=== PATIENT | male | born 1940 | race Caucasian/White ===

== ENCOUNTER 2017-09-01 12:01 | Inpatient (IN) | payer MEDICAID, MEDICARE, OTHER ==
--- NOTE | 2017-09-01 13:08 | RAD ---
INDICATION: History of left-sided CVA fall. COMPARISON: None TECHNIQUE: Noncontrast axial source images were acquired from the skull base to the vertex. FINDINGS: Ventricles/sulci: There is mild cortical volume loss with compensatory dilatation CSF spaces. . Brain parenchyma: There is no acute appearing focal parenchymal finding, evidence of intracranial mass, or intracranial mass effect. There is large area of encephalomalacia in a left MCA distribution consistent with a remote infarct. Intracranial hemorrhage:None. Extra-axial spaces: There are no abnormal extra axial fluid collections or evidence of extra-axial mass. Calvarium: There is no calvarial fracture or other calvarial abnormality. Scalp: There is no evidence of scalp or extracalvarial soft tissue abnormality. Paranasal sinuses/mastoid: There is left maxillary antral sinusitis with a short air-fluid level. The remaining paranasal sinuses and mastoid air cells are clear. Other: None. IMPRESSION: REMOTE LEFT MCA DISTRIBUTION INFARCT. NO ACUTE INTRACRANIAL FINDINGS. LEFT MAXILLARY ANTRAL SINUSITIS WITH AIR-FLUID LEVEL.
--- NOTE | 2017-09-01 13:08 | RAD ---
INDICATION: Syncope COMPARISON: None TECHNIQUE: An AP portable view obtained at 1300 hours is submitted. FINDINGS: Bones/Soft Tissues: There are no acute bony findings. Cardiomediastinal: The cardiomediastinal silhouette is normal. Lungs: There are no infiltrates. There is mild interstitial prominence perhaps related to mild interstitial congestion versus chronic interstitial change Pleura: There are no pleural effusions. Other: None IMPRESSION: MILD INTERSTITIAL PROMINENCE. NO FOCAL HEMORRHAGE.
--- NOTE | 2017-09-01 13:14 | RAD ---
INDICATION: Fall. Possible injury. COMPARISON: None TECHNIQUE: Noncontrast axial source images was performed from the skull base to the thoracic inlet. Coronal and and sagittal reformatted images were generated. FINDINGS: Vertebrae: There is no fracture or acute focal bony lesion. There is mild MID cervical osteoarthritic change. This consists of mild multilevel facet arthropathy, anterior vertebral spur perforation, and mild uncinate process spurring. There is moderate disc space narrowing about C6-C7. Alignment: The craniocervical junction appears normal. There is cervical spine straightening. Central Canal: There are no significant CT abnormalities of the central canal or foramina. MR imaging is a more sensitive method to evaluate the canal and foramina. Intervertebral disc spaces: The remaining disc spaces are maintained. Brain: The visualized brain appears unremarkable. Soft tissues: The visualized soft tissue elements of the neck are unremarkable. The prevertebral soft tissues appear normal. The lung apices are clear. IMPRESSION: MILD MID CERVICAL OSTEOARTHRITIC CHANGE. NO ACUTE FINDINGS.
[2017-09-01 13:31] LABS: ABS Basophils 0.1 10^3/ul (0-0.2); ABS Eosinophils 0 10^3/ul (0-0.6); ABS Lymphocytes 0.9 10^3/ul (1.0-4.8); ABS Monocytes 0.7 10^3/ul (0-0.8); ABS Neutrophils 9.7 10^3/ul (1.5-7.7); ABS Nucleated RBC 0 10^3/ul; Eosinophil % 0.4 % (0-6); Hematocrit 42 % (42-52); Lymphocyte % 7.7 % (25-47); Mean Corpuscular HGB Conc 34 g/dl (31-36); Mean Corpuscular Hemoglobin 27 pg (27-31); Mean Corpuscular Volume 80 fL (80-94); Mean Platelet Volume 8.4 um3 (7.4-10.4); Nucleated Red Blood Cells % 0; Platelet Count 279 10^3/ul (150-450); Red Blood Count 5.22 10^6/ul (4.00-5.40); Red Cell Distribution Width 16 % (10.5-15); White Blood Count 11.4 10^3/ul (3.5-10.8)
[2017-09-01 13:40] LABS: INR 0.93 (0.77-1.02)
[2017-09-01 13:48] LABS: EGFR Non-African American 47.4 (>60)
[2017-09-01] MEDS ORDERED: Acetaminophen SUPP* 650 MG SUPP PR PRN (14:21)
[2017-09-01] MEDS ORDERED: Ondansetron INJ* 2 MG/ML VIAL IV PRN (14:21)
[2017-09-01] MEDS ORDERED: Albuterol 2.5 MG/3 ML NEB.SOL* (0.083%) INH PRN (14:21)
[2017-09-01] MEDS ORDERED: NS 0.9% 1000 ML* 1,000 ML IV SCH ×2 (14:30→16:11)
--- NOTE | 2017-09-01 14:49 | RAD ---
INDICATION: Fall. Possible pelvic injury. COMPARISON: No plain radiographs were obtained TECHNIQUE: Noncontrast axial scans the pelvis were obtained FINDINGS: There is no acute pelvic or hip fracture. The SI joints and symphysis are intact. The visualized intraperitoneal structures appear normal. The bladder is distended. The prostate contains calcifications but is normal in size. There are no abnormalities of the pelvic sidewall. There is no free fluid or adenopathy. The noncontrast CT appearance of the visualized bowel is normal. There are extensive aortic and iliac calcifications. The superficial soft tissues are normal IMPRESSION: NO ACUTE CT FINDINGS.
--- NOTE | 2017-09-01 15:02 | RAD ---
INDICATION: Fall. Possible left elbow injury. COMPARISON: None TECHNIQUE: AP and lateral views were obtained. FINDINGS: The bony structures, joint spaces, and soft tissues are normal for age. IMPRESSION: NEGATIVE EXAMINATION
[2017-09-01] MEDS ORDERED: Piperacillin/Tazobac ADVAN(*) 3.375 GM in NS 0.9% 100 ML* 100 ML IVPB ONE (16:30)
--- NOTE | 2017-09-01 16:36 | PN ---
Hospitalist Progress Note Date of Service: 09/01/17 called to bedside for high resp rate. Upon eval noted patient not using accessory muscles did not appear to be in distress. With movement of patient note that he starting moaning and taking swallow breaths, inquired about pain patient denies. Patient resp rate counted noted to be 26. o2 sats 98 2 lnc, nursing concern for crackles in bases, on left side, upon listening unable to hear crackles however patient not taking deep breath, resp called nebs given, given cough and crackles will empirically start zosyn for ? aspiration PNA, will have attending eval as well. Patient appears comfortable now, will continue ivf at lower rate, continue o2 and prn nebs,
[2017-09-01] MEDS ORDERED: Zosyn per Pharmacy* NOTE FOLLOW UP SCH (17:00)
--- NOTE | 2017-09-01 19:01 | HP ---
CC: Esther Bravo NP* HISTORY AND PHYSICAL: DATE OF ADMISSION: 09/01/17 PRIMARY CARE PROVIDER: Esther Bravo NP ATTENDING PHYSICIAN WHILE IN THE HOSPITAL: Dr. Tamiko Barron* (report being dictated by Sylvain Salguero NP) CHIEF COMPLAINT: 1. Fall. 2. Lethargy. HISTORY OF PRESENT ILLNESS: I would like to preface the report by stating that the patient has a significant amount of schizophrenia. In addition to this, he has had a significant stroke about 30 years ago leaving him impaired with speech. At baseline, he can only say yes or no and has significant weakness on his right side. The son is able to give most of the history and answer my questions. Currently, the patient is coming in today because recently a few weeks ago, he was started on Seroquel 25 mg; he had been doing well with this according to the son. For unknown reason, at this point we are going to try to get records, [facility].5 [facility]. Son has noted over the last several days that the patient has had some increasing lethargy. He has been noted to be more weak, tired, drowsy. There have been no reports of fevers or chills or any worsening cough. No shortness of breath was reported, with the exception the son does state that for several years, he has noticed that with exertion, the patient does get short of breath. He has a history of heavy smoking. Son does state that this morning, the patient got up , the son had heard a fall, he had heard a thud, loud noise. He came to his father's bedside. It was noted that the patient was on the ground. He was complaining of headache. The patient's son got the patient back into bed, he went back to sleep; however, he got him up again around 9:30, got him into the patient's chair. The patient then started having an episode where he was coughing, became kind of wheezing, and then he vomited. At that point, the son was concerned and called 911 immediately. There have been no reports of fever, no recent reports of vomiting. No reports of abdominal pain from the patient to the son, and because of the fall and this new episode of vomiting, he came in to the ER. He was evaluated in the ED and we were asked to evaluate for admission. PAST MEDICAL HISTORY: Significant for: 1. Schizophrenia. 2. Depression. 3. Hyperlipidemia. 4. 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 PAST SURGICAL HISTORY: Denied by the son. MEDICATIONS: Home meds according to the pill bottles provided include: 1. Seroquel 37.5 mg at bedtime. 2. Vitamin D 1000 units p.o. daily. 3. Zocor 20 mg p.o. daily. ALLERGIES TO MEDICATIONS: Include no known drug allergies. FAMILY HISTORY: Father in World War II. Mother, according to the patient' s son, at the age of 90 from CHF. SOCIAL HISTORY: The patient was a former 9-mapg-x-day smoker. He smoked from the age of 17 to about 5 years ago. There were no reports of alcohol use. No reports of drug use. Surrogate decision maker is the patient's son and the patient's ex- . REVIEW OF SYSTEMS: Again, it is difficult to obtain from the patient directly given the fact that he has significant schizophrenia and significant history of stroke. There are no reports of again fever. No documented weight change. No reports of double vision or ear discharge. There is no rhinorrhea. There are reports of a cough, but no change in characteristics. There was 1 episode of nausea and vomiting. No abdominal pain. No chest pain was reported. There is no loss of consciousness. No pruritus, no skin ulcerations. Review of 14 systems was completed, all others negative. PHYSICAL EXAMINATION GENERAL: At this time, Mr. Casetllanos is a 77-year-old male patient. He is sitting in the ED stretcher. He does not appear to be in any acute distress. VITAL SIGNS: Blood pressure 175/76 with a pulse of 62, respirations were 26, O2 sat was 98% on 2 L, temperature was 98.9. HEENT: Head is atraumatic and normocephalic. Eyes: EOMs are intact. Sclerae anicteric and not pale. Throat: Oral mucosa does appear to be dry. No oropharyngeal erythema. NECK: Supple. LUNGS: No wheezes, rales, or rhonchi. HEART: Sounds S1, S2, regular rate and rhythm. No murmurs, rubs, or gallops. ABDOMEN: Soft, flat, nontender. Bowel sounds present. EXTREMITIES: Pulses were 2+ throughout. He can move the left side with 5/5 strength. The right side, he has significant amount of hemiparesis. He has a significantly weakened compliance counsel compared to his left side and he is unable to lift the arm at the shoulder or unable to lift the lower extremity on the right side as well. NEUROLOGIC: He is awake, alert to himself only. Unable to tell if he is alert to time and place given that he cannot tell me the time and place because of the stroke. Speech is again impaired. His compressor mechanic bus were unequal, the right side was significantly weaker than the left side. He had weakness to his right lower extremity as well. He had 5/5 strength on the left side. No facial drooping. No tongue deviation and no other gross focal deficits. SKIN: Intact. DIAGNOSTIC STUDIES/LAB DATA: WBC of 11.4, RBC of 5.22, hemoglobin of 14.0, hematocrit of 42, platelet count of 279. The INR was 0.93, PTT of 27.3, D- dimer was 251. Blood gas showed a PO2 of 79, pH and PCO2 were normal. Bicarb on blood gas was 24.7. Sodium on chemistry is 140; potassium 4.2; chloride of 106; bicarb 27; BUN 19; creatinine 1.44, last lab that I have was from 7 years ago, creatinine was 1; glucose 121; lactate 1.1; calcium 9.4; mag 2.2. Total bili 0.6, AST 12, ALT 9, alk phos 57. Ammonia 30. CK 68. Troponin 0.01. BNP 142. Albumin was 3.9. TSH pending. Toxicology was negative for alcohol. He had multiple imaging here in the emergency department. CT brain read as remote left MCA distribution infarct, no acute intracranial findings, left maxillary antral sinusitis with air-fluid level. Chest x-ray obtained today, mild interstitial prominence, no focal hemorrhage. CT cervical spine shows mild mid cervical osteoarthritic change, no acute findings. EKG shows sinus bradycardia at a rate of 55. He had no ST elevation or T-wave inversions noted. Reviewed it to the previous EKG from again 2010, showing normal sinus rhythm, rate of 72, no acute changes especially in the lead, the rate was not slow. Old medical records were reviewed. ASSESSMENT AND PLAN: Mr. Castellanos is a 77-year-old male patient coming in to the ED today with complaints of fall. In interviewing with the patient, there was concern for again the episodes of vomiting today. In addition, there is also a concern for the patient's altered mental status. He will be admitted under observation status for: 1. Fall. Again, I question if this is secondary to the fact that he has been more lethargic and drowsy, which certainly could be secondary to the Seroquel dosage increase. So, I would decrease this dose. Have PT evaluate him. I will get a CT of the pelvis to make sure there is no pelvic pathology, fracture. I will also check an x-ray of his left elbow as he does have a significant skin tear here to make sure there is no fracture there. I will get PT involved. We will decrease the Seroquel and monitor him and if his mental status has not returned to baseline, then I would certainly get Neurology involved, but at this point again, I would like to decrease the Seroquel dosing. In addition to this, try to get a urine sample on the patient. 2. History of cerebrovascular accident. At this point, we will continue with secondary prevention. He is on a statin, but he is not on an aspirin, which we will double check with the patient, see if he is taking this, but if he is not on one, we should consider him certainly being on an aspirin. 3. History of schizophrenia. Again, we are going to decrease his Seroquel. 4. Hypoxia. Again, when he came in to the ED, it was noted that his saturations were 85%. His PCO2 was a little low at 79. Question if he did aspirate with the vomiting episode. I will go ahead and hold off on antibiotics unless he spikes a fever or if his white count climbs, it is right around 11,400. I would certainly put him on antibiotics if that climbs or if he spikes a fever. I will go ahead and place him n.p.o. with aspiration precautions and get a swallow evaluation because he may have aspirated after the vomiting episode. 5. DVT prophylaxis. I will place him on heparin subcu as he is high risk for deep venous thrombosis. 6. Code status. The son thinks that the patient does have a DNR, but he is unsure. He thinks there may be [facility]. I am going to try to get that from [facility] when able, but for the time being, he will be a full code until we can sort this out when the [facility]. 7. Fluids, electrolytes, and nutrition. Again, n.p.o. Normal saline at 100 an hour has been ordered. TIME SPENT: On admission was 60 minutes, greater than half the time was spent face- to-face with the patient obtaining my history and physical; other half the time was spent going over the plan of care with the patient and implementing plan of care. I did discuss the plan of care with my attending, Dr. Barron; she is in agreement. SYLVAIN SALGUERO NP [id number]/[facility] #: [id number] MTDHenrry
[2017-09-01] MEDS: Atorvastatin* 10 MG TAB PO SCH (20:41)
[2017-09-01] MEDS: QUEtiapine TAB* 25 MG PO SCH (20:41)
[2017-09-01] MEDS: Heparin VIAL(*) 5000 UNITS/ML VIAL (FIVE THOUSAND) SUBCUT SCH (20:42)
[2017-09-01] MEDS: ZOSYN 3.375 GM Q8H per EXTENDED INFUSION IVPB SCH ×2 (20:42)
[2017-09-01] MEDS: Nystatin TOP POWDER* 15 GM BTL TOPICAL SCH (21:50)
--- NOTE | 2017-09-01 22:37 | ED ---
Woody Carlton Simon, scribed for Jenny Rodriguez MD on 09/01/17 at 1259 . Syncope/Near Syncope - HPI Summary HPI Summary: This patient is a 77 year old M presenting to [facility] via EMS from home with a chief complaint of syncope/fall at 1000am today. Dr. Rodriguez spoke with Eunice Brito, pts ex- ([phone], ) who lives with pt and their son, who disclosed pt receives care at [place] , is taking a new med, endorsed that pt fell while walking without walker (which he normally uses) and vomited. States he son is coming to the ED. He denies neck pain, BROWN (although endorsed in triage), extremity pain. Vital signs 164/69, 58 bpm, O2 sat 86 ( with poor waveform).LEVEL 5 CAVEAT: Full HPI unobtainable due to pts AMS and aphasia due to PMHx stroke 40 years ago. - History Of Current Complaint Chief Complaint: EDNeurologicalDeficit Time Seen by Provider: 09/01/17 12:16 Hx Obtained From: Patient, Family/Stunner - pt's ex , EMS Hx From Patient Unobtainable Due To: Altered Mental Status - aphasia from previous stroke Onset/Duration: Sudden Onset, Lasting Hours Timing: Hours - 1000 Context: Unwitnessed, Other - recent medication increase (Seroquel) Activity At Onset: Exertion - walking Associated Head Trauma: Yes Aggravating Factor(s): Nothing Alleviating Factor(s): Nothing Associated Signs And Symptoms: AMS - Allergies/Home Medications Allergies/Adverse Reactions: Allergies Allergy/AdvReac Type Severity Reaction Status Date / Time No Known Allergies Allergy See Comment Verified 09/02/17 10:15 Home Medications: Home Medications Cholecalciferol TAB* [Vitamin D TAB*] 1,000 unit PO DAILY 09/01/17 [History Confirmed 09/01/17] Simvastatin TAB(NF) [Zocor 20 MG (NF)] 20 mg PO BEDTIME 09/01/17 [History Confirmed 09/01/17] PMH/Surg Hx/FS Hx/Imm Hx Previously Healthy: No Cardiovascular History: Reports: Hx Hypercholesterolemia Neurological History: Reports: Hx CVA Psychiatric History: Reports: Hx Anxiety, Hx Depression, Hx Schizophrenia - Surgical History Surgery Procedure, Year, and Place: none Infectious Disease History: No Infectious Disease History: Denies: Traveled Outside the [place] in Last 30 Days - Family History Known Family History: Positive: Hypertension, Other - CHF - Social History Lives: With Family Alcohol Use: None Substance Use Type: Reports: None Smoking Status (MU): Heavy Every Day Tobacco Smoker Review of Systems Positive: Other - increased lethargy Cardiovascular: Negative Respiratory: Negative Positive: Vomiting Positive: Headache Psychological: Other - increased lethargy per son, pt aphasic, unable to assess All Other Systems Reviewed And Are Negative: No - Comments Additional Review of Systems Comments: Level 5 caveat: Full ROS unobtainable due to pt's mental status, aphasia secondary to remote CVA. Physical Exam - Summary Physical Exam Summary: Appearance: Chronically ill-appearing, unable to assess pain distress, well- nourished, can answer only yes/no questions. Skin: Warm, color reflects adequate perfusion, dry Head: Normal Head/Face inspection, atraumatic Eyes: Conjunctiva clear, PERRL, EOMI ENT: Normal inspection, atraumatic Neck: Supple, no nodes, no JVD, nontender Respiratory: Lungs clear, normal breath sounds, no respiratory distress Cardio: RRR, No murmur, pulses normal, brisk capillary refill Abdomen: Soft, nontender Bowel sounds: Present Musculoskeletal: Strength Intact/ROM intact, no calf tenderness, no edema. Psychological: Normal Neuro: Alert, aphasic, muscle tone normal, right sided weakness unchanged per son Triage Information Reviewed: Yes Vital Signs On Initial Exam: Initial Vitals Pulse Pulse Ox 59 96 09/01/17 12:20 09/01/17 12:20 Vital Signs Reviewed: Yes Diagnostics - Vital Signs Vital Signs Temp Pulse Resp BP Pulse Ox 09/01/17 12:51 158/77 09/01/17 12:41 97 09/01/17 12:30 98.9 F 55 18 164/69 97 09/01/17 12:21 56 164/69 96 09/01/17 12:20 59 96 - Laboratory Result Diagrams: 09/04/17 04:49 09/03/17 05:07 Lab Statement: Any lab studies that have been ordered have been reviewed, and results considered in the medical decision making process. - Radiology CXR Xray Interpretation: Positive (See Comments) Radiology Interpretation Completed By: Radiologist - MILD INTERSTITIAL PROMINENCE. NO FOCAL HEMORRHAGE. Dr. Rodriguez has reviewed this report. elbow Xray Interpretation: No Acute Changes Radiology Interpretation Completed By: Radiologist - Negative examination. Dr. Rodriguez has reviewed this report. - CT Brain CT Interpretation: Positive (See Comments) CT Interpretation Completed By: Radiologist - REMOTE LEFT MCA DISTRIBUTION INFARCT. NO ACUTE INTRACRANIAL FINDINGS. LEFT MAXILLARY ANTRAL SINUSITIS WITH AIR-FLUID LEVEL. Dr. Rodriguez has reviewed this report. C-Spine CT Interpretation: Positive (See Comments) CT Interpretation Completed By: Radiologist - MILD MID CERVICAL OSTEOARTHRITIC CHANGE. NO ACUTE FINDINGS. Dr. Rodriguez has reviewed this report. pelvis CT Interpretation: No Acute Changes CT Interpretation Completed By: Radiologist - No acute CT findings. Dr. Rodriguez has reviewed this report. - EKG 1230 Cardiac Rate: Bradycardia - 55 EKG Rhythm: Sinus Bradycardia ST Segment: Non-Specific Ectopy: None EKG Interpretation: nl AVIVCT, nl QTc, nl axis, no acute changes EKG Comparison: No Significant Change - compared with 08/26/10, no significant changes Re-Evaluation - Re-Evaluation First Eval Re-Evaluation Time: 13:30 Change: Unchanged Comment: son with pt Course/Dx Course Of Treatment: A 77-year-old M presents to the ED via EMS after fall/ syncope at home today, after recent increase in seroquel by [facility]. Pt provides limited hx (level 5 caveat), can answer yes/no questions, due to prior CVA and aphasia. Pt's ex who lives with pt provided hx by phone, as well as son present in ED. CT brain and neck with no acute abnormalities. Pt with low O2 sats in the ED, and had vomited after the syncope/fall, so possible aspiration. Pt is not a TPA candidate, no new neuro deficit, code wong not called. - Diagnoses Differential Diagnosis/HQI/PQRI: Positive: Cerebral Vascular Accident, Coronary Artery Disease, Metabolic Reaction, Medication Reaction, Seizure, Vasovagal Episode Provider Diagnoses: Syncope, Fall, Hypoxia - Physician Notifications Discussed Care of Patient With: Tamiko Young Time Discussed With Above Provider: 13:40 Instructed by Provider To: Admit As Inpatient - Accepted admission. Discharge - Sign-Out/Discharge Documenting (check all that apply): Patient Departure - admit - Discharge Plan Condition: Stable Disposition: ADMITTED TO [facility] - Billing Disposition and Condition Condition: STABLE Disposition: Admitted to [facility] The documentation as recorded by the Woody biggs Simon accurately reflects the service I personally performed and the decisions made by , Jenny Rodriguez MD.
[2017-09-02] MEDS: ZOSYN 3.375 GM Q8H per EXTENDED INFUSION IVPB SCH ×6 (05:15→20:28)
[2017-09-02] MEDS: Heparin VIAL(*) 5000 UNITS/ML VIAL (FIVE THOUSAND) SUBCUT SCH ×3 (05:15→20:28)
--- NOTE | 2017-09-02 05:30 | PN ---
Progress Note - Progress Note Date of Service: 09/02/17 Note: Cross cover: No UOP overnight. Bladder scan at 930am and page covering provider. May need ho but was difficult straight cath in ED and cannot indicate if he feels need to void.
[2017-09-02 06:56] LABS: Hematocrit 39 % (42-52); Hemoglobin 12.9 g/dl (14.0-18.0); Mean Corpuscular HGB Conc 33 g/dl (31-36); Mean Corpuscular Hemoglobin 27 pg (27-31); Mean Corpuscular Volume 81 fL (80-94); Mean Platelet Volume 8.5 um3 (7.4-10.4); Platelet Count 248 10^3/ul (150-450); Red Blood Count 4.78 10^6/ul (4.00-5.40); Red Cell Distribution Width 16 % (10.5-15); White Blood Count 13.1 10^3/ul (3.5-10.8)
[2017-09-02 07:12] LABS: EGFR Non-African American 45.3 (>60)
[2017-09-02 08:47] LABS: ABS Basophils 0 10^3/ul (0-0.2); ABS Eosinophils 0.2 10^3/ul (0-0.6); ABS Lymphocytes 1.5 10^3/ul (1.0-4.8); ABS Monocytes 1.6 10^3/ul (0-0.8); ABS Neutrophils 9.7 10^3/ul (1.5-7.7); ABS Nucleated RBC 0 10^3/ul; Eosinophil % 1.8 % (0-6); Lymphocyte % 11.8 % (25-47); Nucleated Red Blood Cells % 0.1
[2017-09-02] MEDS: Nystatin TOP POWDER* 15 GM BTL TOPICAL SCH ×3 (10:23→20:27)
[2017-09-02] MEDS: Cholecalciferol TAB* 1000 UNITS PO SCH (10:23)
[2017-09-02] MEDS: Aspirin EC TAB* 81 MG TAB.EC PO SCH (10:23)
--- NOTE | 2017-09-02 13:52 | PN ---
Subjective Date of Service: 09/02/17 Interval History: HOSPITALIST PROGRESS NOTE Patient seen and examined at bedside. Care reviewed and d/w Lucita Garner RN. He's more awake today. With yes or no answers he's able to tell me he has no shortness of breath or pain, but is hungry. Family History: Unchanged from Admission Social History: Unchanged from Admission Past Medical History: Unchanged from Admission Objective Active Medications: Acetaminophen (Tylenol Supp*) 650 mg [place] Q4H PRN PRN Reason: FEVER/PAIN Albuterol (Ventolin 2.5 Mg/3 Ml Neb.Chanel*) 2.5 mg INH Q2H PRN PRN Reason: SOB/WHEEZING Last Admin: 09/01/17 16:20 Dose: 2.5 mg Aspirin (Aspirin Ec Tab*) 81 mg PO DAILY [facility] Last Admin: 09/02/17 10:23 Dose: 81 mg Atorvastatin Calcium (Lipitor*) 10 mg PO BEDTIME [facility] Last Admin: 09/01/17 20:41 Dose: 10 mg Cholecalciferol (Vitamin D Tab*) 1,000 units PO DAILY [facility] Last Admin: 09/02/17 10:23 Dose: 1,000 units Heparin Sodium (Porcine) (Heparin Vial(*)) 5,000 units SUBCUT Q8HR [facility] Last Admin: 09/02/17 13:25 Dose: 5,000 units Sodium Chloride (Ns 0.9% 1000 Ml*) 1,000 mls @ 75 mls/hr IV PER RATE [facility] Last Admin: 09/01/17 16:34 Dose: 75 mls/hr Piperacillin Sod/Tazobactam (Sod 3.375 gm/ Sodium Chloride) 100 mls @ 25 mls/ hr IVPB Q8H [facility] Last Admin: 09/02/17 12:30 Dose: 25 mls/hr Nystatin (Nystatin Top Powder*) 1 applic TOPICAL TID [facility] Last Admin: 09/02/17 13:25 Dose: 1 applic Ondansetron HCl (Zofran Inj*) 4 mg IV Q6H PRN PRN Reason: NAUSEA Pharmacy Consult (Zosyn Per Pharmacy*) 1 note FOLLOW UP .ZOSYN PER PHARMACY [facility] Quetiapine Fumarate (Seroquel Tab*) 25 mg PO BEDTIME [facility] Last Admin: 09/01/17 20:41 Dose: 25 mg Vital Signs - 8 hr 09/02/17 09/02/17 09/02/17 07:25 09:06 11:19 Temperature 97.4 F 97.6 F Pulse Rate 72 73 65 Respiratory 17 20 20 Rate Blood Pressure 157/64 141/53 (mmHg) O2 Sat by Pulse 97 97 98 Oximetry Oxygen Devices in Use Now: Nasal Cannula - 2 liters Appearance: Elderly gentleman lying in bed in NAD. Eyes: No Scleral Icterus Ears/Nose/Mouth/Throat: Mucous Membranes Moist Neck: Trachea Midline Respiratory: Symmetrical Chest Expansion and Respiratory Effort, - - BS+ bilaterally with left base crackles Cardiovascular: RRR - Normal S1 and S2 Abdominal: NL Sounds; No Tenderness; No Distention Neurological: - - Alert and awake Result Diagrams: 09/02/17 06:13 09/02/17 06:13 Assess/Plan/Problems-Billing Assessment: Mr. Castellanos is a 77yo M with PMH of schizophrenia, depression, HLD, CVA 30 years ago, who presented to ED s/p fall with lethargy. - Patient Problems (1) Lethargy Comment: - Suspect this is medication related as his Seroquel dose had been recently increased. - Dose reduced back to 25mg and mental status seems to be improving. (2) Fall Comment: - Likely secondary to Seroquel induced lethargy as described above. - PT consult requested. (3) Hypoxia Comment: - Suspect patient's hypoxia is secondary to aspiration pneumonia. - Continue Zosyn. (4) CVA (cerebral vascular accident) Comment: - Continue Aspirin and Atorvastatin. (5) DVT prophylaxis Comment: - SQ heparin. Status and Disposition: Inpatient. Will likely need AN[facility]I.
[2017-09-02] MEDS: QUEtiapine TAB* 25 MG PO SCH (20:27)
[2017-09-02] MEDS: Atorvastatin* 10 MG TAB PO SCH (20:27)
[2017-09-03] MEDS: Heparin VIAL(*) 5000 UNITS/ML VIAL (FIVE THOUSAND) SUBCUT SCH ×3 (05:11→20:25)
[2017-09-03] MEDS: ZOSYN 3.375 GM Q8H per EXTENDED INFUSION IVPB SCH ×4 (05:11→12:34)
[2017-09-03 06:16] LABS: ABS Basophils 0.1 10^3/ul (0-0.2); ABS Eosinophils 0.4 10^3/ul (0-0.6); ABS Lymphocytes 1.3 10^3/ul (1.0-4.8); ABS Monocytes 1.5 10^3/ul (0-0.8); ABS Neutrophils 8.1 10^3/ul (1.5-7.7); ABS Nucleated RBC 0 10^3/ul; Eosinophil % 3.8 % (0-6); Hematocrit 37 % (42-52); Hemoglobin 12.1 g/dl (14.0-18.0); Lymphocyte % 11.7 % (25-47); Mean Corpuscular HGB Conc 33 g/dl (31-36); Mean Corpuscular Hemoglobin 27 pg (27-31); Mean Corpuscular Volume 81 fL (80-94); Mean Platelet Volume 8.7 um3 (7.4-10.4); Nucleated Red Blood Cells % 0.1; Platelet Count 229 10^3/ul (150-450); Red Blood Count 4.54 10^6/ul (4.00-5.40); Red Cell Distribution Width 16 % (10.5-15); White Blood Count 11.4 10^3/ul (3.5-10.8)
[2017-09-03 06:40] LABS: EGFR Non-African American 46.3 (>60)
[2017-09-03] MEDS: Nystatin TOP POWDER* 15 GM BTL TOPICAL SCH ×3 (08:49→20:26)
[2017-09-03] MEDS: Cholecalciferol TAB* 1000 UNITS PO SCH (08:49)
[2017-09-03] MEDS: Aspirin EC TAB* 81 MG TAB.EC PO SCH (08:49)
--- NOTE | 2017-09-03 14:23 | PN ---
Subjective Date of Service: 09/03/17 Interval History: HOSPITALIST PROGRESS NOTE Patient seen and examined at bedside. Care reviewed and d/w Lucita Castellanos RN. Answers yes and no questions only. Denies pain or shortness of breath. Answers "yes" when I asked if he was hungry. Family History: Unchanged from Admission Social History: Unchanged from Admission Past Medical History: Unchanged from Admission Objective Active Medications: Acetaminophen (Tylenol Supp*) 650 mg [place] Q4H PRN PRN Reason: FEVER/PAIN Albuterol (Ventolin 2.5 Mg/3 Ml Neb.Chanel*) 2.5 mg INH Q2H PRN PRN Reason: SOB/WHEEZING Last Admin: 09/01/17 16:20 Dose: 2.5 mg Aspirin (Aspirin Ec Tab*) 81 mg PO DAILY [facility] Last Admin: 09/03/17 08:49 Dose: 81 mg Atorvastatin Calcium (Lipitor*) 10 mg PO BEDTIME [facility] Last Admin: 09/02/17 20:27 Dose: 10 mg Cholecalciferol (Vitamin D Tab*) 1,000 units PO DAILY [facility] Last Admin: 09/03/17 08:49 Dose: 1,000 units Heparin Sodium (Porcine) (Heparin Vial(*)) 5,000 units SUBCUT Q8HR [facility] Last Admin: 09/03/17 12:33 Dose: 5,000 units Piperacillin Sod/Tazobactam (Sod 3.375 gm/ Sodium Chloride) 100 mls @ 25 mls/ hr IVPB Q8H [facility] Last Admin: 09/03/17 12:34 Dose: 25 mls/hr Nystatin (Nystatin Top Powder*) 1 applic TOPICAL TID [facility] Last Admin: 09/03/17 12:33 Dose: 1 applic Ondansetron HCl (Zofran Inj*) 4 mg IV Q6H PRN PRN Reason: NAUSEA Pharmacy Consult (Zosyn Per Pharmacy*) 1 note FOLLOW UP .ZOSYN PER PHARMACY [facility] Quetiapine Fumarate (Seroquel Tab*) 25 mg PO BEDTIME [facility] Last Admin: 09/02/17 20:27 Dose: 25 mg Vital Signs - 8 hr 09/03/17 09/03/17 09/03/17 07:35 08:00 10:28 Temperature 97.3 F Pulse Rate 71 Respiratory 18 22 Rate Blood Pressure 154/49 (mmHg) O2 Sat by Pulse 100 95 Oximetry 09/03/17 11:18 Temperature 98.3 F Pulse Rate 81 Respiratory 18 Rate Blood Pressure 151/65 (mmHg) O2 Sat by Pulse 99 Oximetry Oxygen Devices in Use Now: None Appearance: Elderly gentleman lying in bed in NAD. Eyes: No Scleral Icterus Ears/Nose/Mouth/Throat: Mucous Membranes Moist Neck: Trachea Midline Respiratory: Symmetrical Chest Expansion and Respiratory Effort, - - BS+ bilaterally with crackles on left base Cardiovascular: RRR - Normal S1 and S2 Neurological: - - Alert and awake Result Diagrams: 09/03/17 05:07 09/03/17 05:07 Assess/Plan/Problems-Billing Assessment: Mr. Castellanos is a 77yo M with PMH of schizophrenia, depression, HLD, CVA 30 years ago, who presented to ED s/p fall with lethargy. - Patient Problems (1) Lethargy Comment: - Suspect this is medication related as his Seroquel dose had been recently increased. - Dose reduced back to 25mg and mental status seems to be close to baseline. (2) Fall Comment: - Likely secondary to Seroquel induced lethargy as described above. - PT consult appreciated - needs Roger lift for transfers. Will require [facility]. (3) Hypoxia Comment: - Suspect patient's hypoxia is secondary to aspiration pneumonia. - D/c Zosyn and start Augmentin #3/5. (4) CVA (cerebral vascular accident) Comment: - Continue Aspirin and Atorvastatin. (5) DVT prophylaxis Comment: - SQ heparin. Status and Disposition: Inpatient. Will likely need [facility].
[2017-09-03] MEDS: Amoxicillin/Clavulanate SUSP* 600 MG/5 ML ORAL.SUSP 75 ML (600/42.9) PO SCH ×2 (16:46→20:25)
[2017-09-03] MEDS: Atorvastatin* 10 MG TAB PO SCH (20:25)
[2017-09-03] MEDS: QUEtiapine TAB* 25 MG PO SCH (20:25)
[2017-09-03] MEDS: amLODIPine TAB* 5 MG PO SCH (20:52)
--- NOTE | 2017-09-03 22:41 | PN ---
Hospitalist Progress Note Date of Service: 09/03/17 Informed by RN that pt recently started on Norvasc by Sylvain segura; received page informing me that pt's blood pressure is still elevated. This is not surprising because norvasc is probably not at its therapeutic levels at this time. Will place pt on PRN IV Hydralazine and will defer any further adjustments of maintenance anti-hypertensives with Dr. Young in her subsequent re-evaluations.
[2017-09-03] MEDS: hydrALAZINE IV* 20 MG/ML VIAL IV SLOW PU PRN (23:10)
[2017-09-04 04:59] LABS: ABS Basophils 0.1 10^3/ul (0-0.2); ABS Eosinophils 0.6 10^3/ul (0-0.6); ABS Lymphocytes 2.1 10^3/ul (1.0-4.8); ABS Monocytes 1.4 10^3/ul (0-0.8); ABS Neutrophils 7.1 10^3/ul (1.5-7.7); ABS Nucleated RBC 0 10^3/ul; Eosinophil % 5.1 % (0-6); Hematocrit 37 % (42-52); Hemoglobin 12.5 g/dl (14.0-18.0); Lymphocyte % 18.4 % (25-47); Mean Corpuscular HGB Conc 34 g/dl (31-36); Mean Corpuscular Hemoglobin 27 pg (27-31); Mean Corpuscular Volume 80 fL (80-94); Mean Platelet Volume 8.4 um3 (7.4-10.4); Nucleated Red Blood Cells % 0.1; Platelet Count 252 10^3/ul (150-450); Red Blood Count 4.65 10^6/ul (4.00-5.40); Red Cell Distribution Width 16 % (10.5-15); White Blood Count 11.2 10^3/ul (3.5-10.8)
[2017-09-04] MEDS: hydrALAZINE IV* 20 MG/ML VIAL IV SLOW PU PRN (05:09)
[2017-09-04] MEDS: Heparin VIAL(*) 5000 UNITS/ML VIAL (FIVE THOUSAND) SUBCUT SCH ×3 (05:10→21:51)
[2017-09-04] MEDS ORDERED: Furosemide IV* 10 MG/ML VIAL (40 MG) IV SLOW PU ONE (07:30)
[2017-09-04] MEDS: Amoxicillin/Clavulanate SUSP* 600 MG/5 ML ORAL.SUSP 75 ML (600/42.9) PO SCH ×3 (09:48→21:51)
[2017-09-04] MEDS: Nystatin TOP POWDER* 15 GM BTL TOPICAL SCH ×4 (09:49→21:51)
[2017-09-04] MEDS: Aspirin EC TAB* 81 MG TAB.EC PO SCH (09:49)
[2017-09-04] MEDS: amLODIPine TAB* 5 MG PO SCH (09:49)
[2017-09-04] MEDS: Cholecalciferol TAB* 1000 UNITS PO SCH (09:49)
--- NOTE | 2017-09-04 15:00 | PN ---
Subjective Date of Service: 09/04/17 Interval History: HOSPITALIST PROGRESS NOTE Patient seen and examined at bedside. Care reviewed and d/w Lolita Nair RN. Answer yes/no questions. Denies pain, dyspnea, N/V, hunger. Family History: Unchanged from Admission Social History: Unchanged from Admission Past Medical History: Unchanged from Admission Objective Active Medications: Acetaminophen (Tylenol Supp*) 650 mg [place] Q4H PRN PRN Reason: FEVER/PAIN Last Admin: 09/04/17 14:35 Dose: 650 mg Albuterol (Ventolin 2.5 Mg/3 Ml Neb.Chanel*) 2.5 mg INH Q2H PRN PRN Reason: SOB/WHEEZING Last Admin: 09/01/17 16:20 Dose: 2.5 mg Amlodipine Besylate (Norvasc Tab*) 5 mg PO DAILY [facility] Last Admin: 09/04/17 09:49 Dose: 5 mg Amoxicillin/Clavulanate Potassium (Augmentin Susp*) 600 mg PO TID [facility] Stop: 09/05/17 09:01 Last Admin: 09/04/17 14:40 Dose: 600 mg Aspirin (Aspirin Ec Tab*) 81 mg PO DAILY [facility] Last Admin: 09/04/17 09:49 Dose: 81 mg Atorvastatin Calcium (Lipitor*) 10 mg PO BEDTIME [facility] Last Admin: 09/03/17 20:25 Dose: 10 mg Cholecalciferol (Vitamin D Tab*) 1,000 units PO DAILY [facility] Last Admin: 09/04/17 09:49 Dose: 1,000 units Heparin Sodium (Porcine) (Heparin Vial(*)) 5,000 units SUBCUT Q8HR [facility] Last Admin: 09/04/17 14:40 Dose: 5,000 units Nystatin (Nystatin Top Powder*) 1 applic TOPICAL TID [facility] Last Admin: 09/04/17 14:40 Dose: Not Given Ondansetron HCl (Zofran Inj*) 4 mg IV Q6H PRN PRN Reason: NAUSEA Quetiapine Fumarate (Seroquel Tab*) 25 mg PO BEDTIME [facility] Last Admin: 09/03/17 20:25 Dose: 25 mg Vital Signs - 8 hr 09/04/17 09/04/17 09/04/17 07:37 08:00 08:28 Temperature 97.6 F Pulse Rate 79 78 Respiratory 16 24 18 Rate Blood Pressure 169/55 (mmHg) O2 Sat by Pulse 94 96 Oximetry 09/04/17 09/04/17 09/04/17 08:48 11:23 11:25 Temperature 99.7 F Pulse Rate 77 Respiratory 24 20 Rate Blood Pressure 131/55 (mmHg) O2 Sat by Pulse 96 Oximetry Oxygen Devices in Use Now: None Appearance: Elderly gentleman lying in bed in NAD. Eyes: No Scleral Icterus Ears/Nose/Mouth/Throat: Mucous Membranes Moist Neck: Trachea Midline Respiratory: Symmetrical Chest Expansion and Respiratory Effort, Clear to Auscultation Cardiovascular: RRR - Normal S1 and S2 Neurological: - - Alert and awake Result Diagrams: 09/04/17 04:49 09/03/17 05:07 Assess/Plan/Problems-Billing Assessment: Mr. Castellanos is a 77yo M with PMH of schizophrenia, depression, HLD, CVA 30 years ago, who presented to ED s/p fall with lethargy. - Patient Problems (1) Lethargy Comment: - Suspect this is medication related as his Seroquel dose had been recently increased. - Dose reduced back to 25mg and mental status seems to be back at baseline. (2) Fall Comment: - Likely secondary to Seroquel induced lethargy as described above. - PT consult appreciated - needs Roger lift for transfers. Will require [facility]. (3) Hypoxia Comment: - Suspect patient's hypoxia is secondary to aspiration pneumonia. - Augmentin #4/5. (4) CVA (cerebral vascular accident) Comment: - Continue Aspirin and Atorvastatin. (5) DVT prophylaxis Comment: - SQ heparin. (6) DNR (do not resuscitate) Status and Disposition: Inpatient. Will need [facility].
[2017-09-04] MEDS: QUEtiapine TAB* 25 MG PO SCH (21:51)
[2017-09-04] MEDS: Atorvastatin* 10 MG TAB PO SCH (21:51)
[2017-09-05] MEDS: Heparin VIAL(*) 5000 UNITS/ML VIAL (FIVE THOUSAND) SUBCUT SCH ×3 (05:50→21:32)
[2017-09-05] MEDS: Aspirin EC TAB* 81 MG TAB.EC PO SCH (10:00)
[2017-09-05] MEDS: Nystatin TOP POWDER* 15 GM BTL TOPICAL SCH ×3 (10:00→21:32)
[2017-09-05] MEDS: amLODIPine TAB* 5 MG PO SCH (10:00)
[2017-09-05] MEDS: Cholecalciferol TAB* 1000 UNITS PO SCH (10:00)
[2017-09-05] MEDS: Amoxicillin/Clavulanate SUSP* 600 MG/5 ML ORAL.SUSP 75 ML (600/42.9) PO SCH (10:04)
--- NOTE | 2017-09-05 13:32 | PN ---
Subjective Date of Service: 09/05/17 Interval History: HOSPITALIST PROGRESS NOTE Patient seen and examined at bedside. Care reviewed and d/w Lolita Nair RN. Communicates with yes/no answers. Denies pain, dyspnea, N/V, hunger. Family History: Unchanged from Admission Social History: Unchanged from Admission Past Medical History: Unchanged from Admission Objective Active Medications: Acetaminophen (Tylenol Supp*) 650 mg GA Q4H PRN PRN Reason: FEVER/PAIN Last Admin: 09/04/17 14:35 Dose: 650 mg Albuterol (Ventolin 2.5 Mg/3 Ml Neb.Chanel*) 2.5 mg INH Q2H PRN PRN Reason: SOB/WHEEZING Last Admin: 09/01/17 16:20 Dose: 2.5 mg Amlodipine Besylate (Norvasc Tab*) 5 mg PO DAILY [facility] Last Admin: 09/05/17 10:00 Dose: 5 mg Aspirin (Aspirin Ec Tab*) 81 mg PO DAILY [facility] Last Admin: 09/05/17 10:00 Dose: 81 mg Atorvastatin Calcium (Lipitor*) 10 mg PO BEDTIME [facility] Last Admin: 09/04/17 21:51 Dose: 10 mg Cholecalciferol (Vitamin D Tab*) 1,000 units PO DAILY [facility] Last Admin: 09/05/17 10:00 Dose: 1,000 units Heparin Sodium (Porcine) (Heparin Vial(*)) 5,000 units SUBCUT Q8HR [facility] Last Admin: 09/05/17 05:50 Dose: 5,000 units Nystatin (Nystatin Top Powder*) 1 applic TOPICAL TID [facility] Last Admin: 09/05/17 10:00 Dose: Not Given Ondansetron HCl (Zofran Inj*) 4 mg IV Q6H PRN PRN Reason: NAUSEA Quetiapine Fumarate (Seroquel Tab*) 25 mg PO BEDTIME [facility] Last Admin: 09/04/17 21:51 Dose: 25 mg Vital Signs - 8 hr 09/05/17 09/05/17 09/05/17 07:23 08:00 10:10 Temperature 98.2 F Pulse Rate 83 Respiratory 16 28 28 Rate Blood Pressure 139/46 (mmHg) O2 Sat by Pulse 94 Oximetry 09/05/17 11:47 Temperature 97.8 F Pulse Rate 74 Respiratory 16 Rate Blood Pressure 138/56 (mmHg) O2 Sat by Pulse 97 Oximetry Oxygen Devices in Use Now: None Appearance: Elderly gentleman sitting up in a recliner in NAD. Ears/Nose/Mouth/Throat: Mucous Membranes Moist Neck: Trachea Midline Neurological: - - Alert and awake, answers yes/no questions Result Diagrams: 09/04/17 04:49 09/03/17 05:07 Assess/Plan/Problems-Billing Assessment: Mr. Castellanos is a 77yo M with PMH of schizophrenia, depression, HLD, CVA 30 years ago, who presented to ED s/p fall with lethargy. - Patient Problems (1) Lethargy Comment: - Suspect this is medication related as his Seroquel dose had been recently increased. - Dose reduced back to 25mg and mental status seems to be back at baseline. (2) Fall Comment: - Likely secondary to Seroquel induced lethargy as described above. - PT consult appreciated - needs Roger lift for transfers. Awaiting bed at [facility]. (3) Hypoxia Comment: - Suspect patient's hypoxia is secondary to aspiration pneumonia - hypoxia is now resolved. - Augmentin #5/5. (4) CVA (cerebral vascular accident) Comment: - Continue Aspirin and Atorvastatin. (5) DVT prophylaxis Comment: - SQ heparin. (6) DNR (do not resuscitate) Status and Disposition: Inpatient. Will need [facility].
[2017-09-05] MEDS: Atorvastatin* 10 MG TAB PO SCH (21:31)
[2017-09-05] MEDS: QUEtiapine TAB* 25 MG PO SCH (21:31)
[2017-09-06] MEDS: Heparin VIAL(*) 5000 UNITS/ML VIAL (FIVE THOUSAND) SUBCUT SCH ×3 (05:35→21:00)
[2017-09-06] MEDS: Nystatin TOP POWDER* 15 GM BTL TOPICAL SCH ×3 (08:15→20:49)
[2017-09-06] MEDS: Cholecalciferol TAB* 1000 UNITS PO SCH (08:39)
[2017-09-06] MEDS: Aspirin EC TAB* 81 MG TAB.EC PO SCH (08:40)
[2017-09-06] MEDS: amLODIPine TAB* 5 MG PO SCH (08:40)
--- NOTE | 2017-09-06 09:30 | PN ---
Subjective Date of Service: 09/06/17 Interval History: HOSPITALIST PROGRESS NOTE Patient seen and examined at bedside. Care reviewed and d/w Jessie Cespedes RN. Denies pain, dyspnea, N/V. PO intake vaires: ate 25% breakfast and lunch, 100% dinner yesterday. Family History: Unchanged from Admission Social History: Unchanged from Admission Past Medical History: Unchanged from Admission Objective Active Medications: Acetaminophen (Tylenol Supp*) 650 mg [place] Q4H PRN PRN Reason: FEVER/PAIN Last Admin: 09/04/17 14:35 Dose: 650 mg Albuterol (Ventolin 2.5 Mg/3 Ml Neb.Chanel*) 2.5 mg INH Q2H PRN PRN Reason: SOB/WHEEZING Last Admin: 09/01/17 16:20 Dose: 2.5 mg Amlodipine Besylate (Norvasc Tab*) 5 mg PO DAILY [facility] Last Admin: 09/06/17 08:40 Dose: 5 mg Aspirin (Aspirin Ec Tab*) 81 mg PO DAILY [facility] Last Admin: 09/06/17 08:40 Dose: 81 mg Atorvastatin Calcium (Lipitor*) 10 mg PO BEDTIME [facility] Last Admin: 09/05/17 21:31 Dose: 10 mg Cholecalciferol (Vitamin D Tab*) 1,000 units PO DAILY [facility] Last Admin: 09/06/17 08:39 Dose: 1,000 units Heparin Sodium (Porcine) (Heparin Vial(*)) 5,000 units SUBCUT Q8HR [facility] Last Admin: 09/06/17 05:35 Dose: 5,000 units Nystatin (Nystatin Top Powder*) 1 applic TOPICAL TID [facility] Last Admin: 09/06/17 08:15 Dose: Not Given Ondansetron HCl (Zofran Inj*) 4 mg IV Q6H PRN PRN Reason: NAUSEA Quetiapine Fumarate (Seroquel Tab*) 25 mg PO BEDTIME [facility] Last Admin: 09/05/17 21:31 Dose: 25 mg Vital Signs - 8 hr 09/06/17 09/06/17 09/06/17 01:56 03:21 07:31 Temperature 97.9 F 97.8 F Pulse Rate 72 69 74 Respiratory 20 16 23 Rate Blood Pressure 157/80 135/54 (mmHg) O2 Sat by Pulse 93 96 96 Oximetry 09/06/17 08:00 Temperature Pulse Rate Respiratory 20 Rate Blood Pressure (mmHg) O2 Sat by Pulse Oximetry Oxygen Devices in Use Now: None Appearance: Elderly gentleman lying in bed in NAD. Eyes: No Scleral Icterus Ears/Nose/Mouth/Throat: Mucous Membranes Moist Neck: Trachea Midline Extremities: No Edema Neurological: - - Alert and awake Result Diagrams: 09/04/17 04:49 09/03/17 05:07 Assess/Plan/Problems-Billing Assessment: Mr. Castellanos is a 77yo M with PMH of schizophrenia, depression, HLD, CVA 30 years ago, who presented to ED s/p fall with lethargy. - Patient Problems (1) Lethargy Comment: - Suspect this is medication related as his Seroquel dose had been recently increased. - Dose reduced back to 25mg and mental status seems to be back at baseline. (2) Fall Comment: - Likely secondary to Seroquel induced lethargy as described above. - PT consult appreciated - needs Roger lift for transfers. Awaiting bed at [facility]. (3) Hypoxia Comment: - Suspect patient's hypoxia is secondary to aspiration pneumonia - hypoxia is now resolved. - Complete 5 days of antibiotics (Zosyn/Augmentin). (4) CVA (cerebral vascular accident) Comment: - Continue Aspirin and Atorvastatin. (5) DVT prophylaxis Comment: - SQ heparin. (6) DNR (do not resuscitate) Status and Disposition: Inpatient. Awaiting [facility] bed.
[2017-09-06] MEDS: QUEtiapine TAB* 25 MG PO SCH (21:00)
[2017-09-06] MEDS: Atorvastatin* 10 MG TAB PO SCH (21:00)
[2017-09-07] MEDS: Heparin VIAL(*) 5000 UNITS/ML VIAL (FIVE THOUSAND) SUBCUT SCH ×3 (06:16→21:15)
[2017-09-07] MEDS: Nystatin TOP POWDER* 15 GM BTL TOPICAL SCH ×3 (07:20→19:56)
[2017-09-07] MEDS: amLODIPine TAB* 5 MG PO SCH (08:39)
[2017-09-07] MEDS: Cholecalciferol TAB* 1000 UNITS PO SCH (08:39)
[2017-09-07] MEDS: Aspirin EC TAB* 81 MG TAB.EC PO SCH (08:39)
--- NOTE | 2017-09-07 14:30 | PN ---
Subjective Date of Service: 09/07/17 Interval History: NO c/o. Communication skills seem poor. Family History: Unchanged from Admission Social History: Unchanged from Admission Past Medical History: Unchanged from Admission Objective Active Medications: Acetaminophen (Tylenol Supp*) 650 mg [place] Q4H PRN PRN Reason: FEVER/PAIN Last Admin: 09/04/17 14:35 Dose: 650 mg Albuterol (Ventolin 2.5 Mg/3 Ml Neb.Chanel*) 2.5 mg INH Q2H PRN PRN Reason: SOB/WHEEZING Last Admin: 09/01/17 16:20 Dose: 2.5 mg Amlodipine Besylate (Norvasc Tab*) 5 mg PO DAILY [facility] Last Admin: 09/07/17 08:39 Dose: 5 mg Aspirin (Aspirin Ec Tab*) 81 mg PO DAILY [facility] Last Admin: 09/07/17 08:39 Dose: 81 mg Atorvastatin Calcium (Lipitor*) 10 mg PO BEDTIME [facility] Last Admin: 09/06/17 21:00 Dose: 10 mg Cholecalciferol (Vitamin D Tab*) 1,000 units PO DAILY [facility] Last Admin: 09/07/17 08:39 Dose: 1,000 units Heparin Sodium (Porcine) (Heparin Vial(*)) 5,000 units SUBCUT Q8HR [facility] Last Admin: 09/07/17 06:16 Dose: 5,000 units Nystatin (Nystatin Top Powder*) 1 applic TOPICAL TID [facility] Last Admin: 09/07/17 07:20 Dose: Not Given Ondansetron HCl (Zofran Inj*) 4 mg IV Q6H PRN PRN Reason: NAUSEA Quetiapine Fumarate (Seroquel Tab*) 25 mg PO BEDTIME [facility] Last Admin: 09/06/17 21:00 Dose: 25 mg Vital Signs - 8 hr 09/07/17 09/07/17 07:43 08:00 Temperature 97.7 F Pulse Rate 86 Respiratory 18 20 Rate Blood Pressure 155/65 (mmHg) O2 Sat by Pulse 97 Oximetry Oxygen Devices in Use Now: None Appearance: Alert, partly up in bed. Neutral affect, looks comfortable. Eyes: No Scleral Icterus Respiratory: Symmetrical Chest Expansion and Respiratory Effort, Clear to Auscultation, Clear to Percussion Cardiovascular: NL Sounds; No Murmurs; No JVD, RRR, No Edema, - Extremities: No Edema, No Clubbing, Cyanosis, - Skin: No Rash or Ulcers, No Nodules or Sclerosis, - Neurological: NL Sensation - Answers "yes" or "no" only. Pill-rolling L Hand > R. Uses L arm only. Result Diagrams: 09/04/17 04:49 09/03/17 05:07 Assess/Plan/Problems-Billing Assessment: Mr. Castellanos is a 77yo M with PMH of schizophrenia, depression, HLD, CVA 30 years ago, who presented to ED s/p fall with lethargy. - Patient Problems (1) CVA (cerebral vascular accident) Current Visit: Yes Status: Acute Code(s): I63.9 - CEREBRAL INFARCTION, UNSPECIFIED SNOMED Code(s): 032379411 Comment: - Continue Aspirin and Atorvastatin. (2) Schizophrenia Current Visit: Yes Status: Acute Code(s): F20.9 - SCHIZOPHRENIA, UNSPECIFIED SNOMED Code(s): 85999449 Comment: Continue quetiapine. Status and Disposition: Inpatient. Awaiting [facility] bed.
[2017-09-07] MEDS: Atorvastatin* 10 MG TAB PO SCH (20:02)
[2017-09-07] MEDS: QUEtiapine TAB* 25 MG PO SCH (20:02)
[2017-09-08] MEDS: Heparin VIAL(*) 5000 UNITS/ML VIAL (FIVE THOUSAND) SUBCUT SCH ×2 (05:41→12:16)
[2017-09-08] MEDS: Nystatin TOP POWDER* 15 GM BTL TOPICAL SCH ×2 (08:23→12:16)
[2017-09-08] MEDS: amLODIPine TAB* 5 MG PO SCH (08:25)
[2017-09-08] MEDS: Aspirin EC TAB* 81 MG TAB.EC PO SCH (08:26)
[2017-09-08] MEDS: Cholecalciferol TAB* 1000 UNITS PO SCH (08:26)
--- NOTE | 2017-09-08 10:23 | PN ---
Progress Note - Progress Note Date of Service: 09/08/17 Note: Time spent on discharge 38 minutes: Face to Face: 5 minutes Discussion with case planner: 2 minutes Review of EMR: 12 minutes Dictation: 6 minutes Preparation of discharge plan: 8 minutes Other paperwork: 5 minutes
[2017-09-08 11:11] VITALS: BP 148/61
--- NOTE | 2017-09-08 11:11 | DS ---
CC: Esther Bravo NP DATE OF ADMISSION: 09/02/2017. DATE OF DISCHARGE: 09/08/2017. HISTORY: This 77-year-old man presented after a fall and altered mental status. [facility] from 25 to 37.5 mg within the last week or so and for the last few days the patient had i ncreasing lethargy. The patient himself has a combination of schizophrenia and aphasia from a previo us stroke and could not give a reliable history. The patient was felt to be oversedated from Quetiapine and this was probably the cause of his fall. He was evaluated by PT. He was a Roger lift. He really did not progress much here. He did improve when his Quetiapine dose was decreased and appeared to be more or less at his baseline. He has been transferred for long-term longterm care. FINAL DIAGNOSES: 1. History of CVA. 2. Schizophrenia. 3. Hypertension. 4. COPD. DISCHARGE MEDICATIONS: 1. Acetaminophen 650 mg every 4 hours. 2. Albuterol 2.5 mg by nebulizer every 2 hours prn. 3. Amlodipine 5 mg daily. 4. Aspirin 81 mg daily. 5. Nystatin topical powder t.i.d. as needed. 6. Quetiapine 25 mg at bedtime. 7. Vitamin D 1,000 units daily. [id number]/[facility] #: [id number]
== END 2017-09-08 14:30 | DRG 178 ==
LOC: ED 12:01 → MED 14:19 → OBSVTOIN 09-02 10:27
PROVIDERS: ADMIT Internal Medicine; ATTEND Internal Medicine
DX: J69.0 Pneumonitis due to inhalation of food and vomit (principal); I69.351 Hemiplegia and hemiparesis following cerebral infarction affecting right dominant side; R41.82 Altered mental status, unspecified; F20.9 Schizophrenia, unspecified; R53.83 Other fatigue; E78.00 Pure hypercholesterolemia, unspecified; F41.9 Anxiety disorder, unspecified; F32.9 Major depressive disorder, single episode, unspecified; R09.02 Hypoxemia; F17.210 Nicotine dependence, cigarettes, uncomplicated; J32.0 Chronic maxillary sinusitis; R00.1 Bradycardia, unspecified; Z66 Do not resuscitate; R29.6 Repeated falls; T43.595A Adverse effect of other antipsychotics and neuroleptics, initial encounter; J44.9 Chronic obstructive pulmonary disease, unspecified; I69.320 Aphasia following cerebral infarction; Z82.49 Family history of ischemic heart disease and other diseases of the circulatory system; Z79.82 Long term (current) use of aspirin; Y92.009 Unspecified place in unspecified non-institutional (private) residence as the place of occurrence of the external cause
CPT/HCPCS: 36415; 70450; 71045; 72125; 72192; 80048; 80053; 80320; 82140; 82550; 82803; 83605; 83735; 83880; 84443; 84484; 85025; 85379; 85610; 85730; 93005; 94640; 99284; A9270-GY; G0378; G0480; G8978-GP-CM; G8979-GP-CM; G8980-GP-CM; G8996-GN-CI; G8996-GN-CJ; G8997-GN-CI; G8998-GN-CI; J0360; J1644; J1940; J2543